=== PATIENT | male | born 1980 | race African-American/Black ===

== ENCOUNTER 2016-09-09 12:01 | Emergency (ER) | payer BC ==
--- NOTE | 2016-09-09 12:30 | ER Document Report ---
ED Medical Screen (RME) - General Chief Complaint: Chest Pain Stated Complaint: CHEST PAIN Time Seen by Provider: 09/09/16 12:29 Mode of Arrival: Ambulatory Information source: Patient Notes: Is a 36-year-old man who presents to the emergency room with some sharp chest pain with movement of the upper arms. 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 The patient denies any exertional chest pain or shortness of breath. He does smoke a half pack per day. He is not on any medicines. His father had a heart attack in his 50s. Patient symptoms have been atypical: Sharp in nature, constant for the past few days and not associated with exertion. TRAVEL OUTSIDE OF THE [place] IN LAST 30 DAYS: No - HPI Onset: Last week Quality of pain: Sharp Severity: Mild Pain Level: 1 Associated Symptoms: denies: Chills, Fever, Shortness of breath Exacerbated by: Movement. denies: Walking Relieved by: Denies Similar symptoms previously: Yes Recently seen / treated by doctor: Yes - Related Data Allergies/Adverse Reactions: No Known Allergies Allergy (Verified 09/09/16 12:14) Past Medical History - General Information source: Patient - Social History Cigarette use (# per day): No Chew tobacco use (# tins/day): No Frequency of alcohol use: None Drug Abuse: None Lives with: Family Family history: Reviewed & Not Pertinent - Medical History Medical History: Negative Renal/ Medical History: Denies: Hx Peritoneal Dialysis Surgical Hx: Negative - Immunizations Immunizations up to date: Yes Hx Diphtheria, Pertussis, Tetanus Vaccination: Yes Review of Systems - Review of Systems Constitutional: denies: Chills, Fever EENT: No symptoms reported Cardiovascular: See HPI Respiratory: No symptoms reported Gastrointestinal: No symptoms reported Genitourinary: No symptoms reported Male Genitourinary: No symptoms reported Musculoskeletal: See HPI Skin: No symptoms reported Hematologic/Lymphatic: No symptoms reported Neurological/Psychological: No symptoms reported Physical Exam - Vital signs Vitals: Temp Pulse Resp BP Pulse Ox 98.0 F 89 20 171/88 H 97 09/09/16 12:12 09/09/16 12:12 09/09/16 12:12 09/09/16 12:12 09/09/16 12:12 Notes: Physical exam: GENERAL: 36-year-old man, alert and oriented 3, no acute distress HEAD: Atraumatic, normocephalic. EYES: Pupils equal round and reactive to light, extraocular movements intact, sclera anicteric, conjunctiva are normal. ENT: TMs normal, nares patent, oropharynx clear without exudates. Moist mucous membranes. NECK: Normal range of motion, supple without lymphadenopathy or JVD. LUNGS: Breath sounds clear to auscultation bilaterally and equal. No wheezes rales or rhonchi. HEART: Regular rate and rhythm without murmurs, rubs or gallops. ABDOMEN: Soft, normoactive bowel sounds. No tenderness to palpation. No guarding, no rebound. No masses appreciated. EXTREMITIES: Normal range of motion, no pitting or edema. No clubbing or cyanosis. NEUROLOGICAL: Cranial nerves II through XII grossly intact. Normal speech, normal gait. PSYCH: Normal mood, normal affect. SKIN: Warm, Dry, normal turgor, no rashes or lesions noted. Course - Re-evaluation Re-evalutation: 09/09/16 14:47 note: Despite that the patient's symptoms are atypical, his pressure is elevated , he does have a family history and he smokes. I have spoken to him in detail about the smoking and he states he is going to try and quit (he is only smoked for approximately a year). I have also advised him to follow-up with the char conveyor tender and he will have a blood pressure reassessed at that time. I have given him the referral number to Dr. Frye and I have called Dr. Frye to let him know that the patient will be following up with him. - Vital Signs Vital signs: Temp Pulse Resp BP Pulse Ox 98.0 F 89 20 171/88 H 97 09/09/16 12:12 09/09/16 12:12 09/09/16 12:12 09/09/16 12:12 09/09/16 12:12 - Laboratory Result Diagrams: 09/09/16 12:41 09/09/16 12:41 Laboratory results interpreted by me: 09/09/16 09/09/16 12:41 12:41 RBC 5.83 H MCH 26.5 L RDW 14.6 H Glucose 129 H ALT 122 H Creatine Kinase 328 H - Diagnostic Test Radiology reviewed: Image reviewed, Reports reviewed - X-ray shows no infiltrates or effusions - EKG Interpretation by Me Rate: Normal Rhythm: NSR - EKG shows normal sinus rhythm with no acute ST-T wave changes Doctor's Discharge - Discharge Clinical Impression: Chest pain Qualifiers: Chest pain type: other chest pain Qualified Code(s): R07.89 - Other chest pain Condition: Stable Disposition: HOME, SELF-CARE Additional Instructions: As we discussed, your heart tests look good today but was your EKG. However, your blood pressure was elevated and you may require blood pressure medicine. I would like you to follow-up with Dr. Frye ( "Marie") who is a char conveyor tender for a repeat blood pressure check and outpatient stress test. In the meantime, stop smoking as we discussed. Avoid salt. Return to the emergency room for worsening pain, shortness of breath or any concerns or getting worse. Forms: Elevated Blood Pressure Referrals: SOUMYA FRYE MD [ACTIVE STAFF] - Follow up in 1 week
[2016-09-09 13:00] LABS: ABSOLUTE BASOPHILS # (AUTO) 0.1 10^3/uL (0.0-0.2); ABSOLUTE EOSINOPHILS # (AUTO) 0.2 10^3/uL (0.0-0.6); ABSOLUTE LYMPHOCYTES (AUTO) 2.9 10^3/uL (0.5-4.7); ABSOLUTE MONOCYTES (AUTO) 0.4 10^3/uL (0.1-1.4); ABSOLUTE NEUT (AUTO) 5.1 10^3/uL (1.7-8.2); BASOPHILS % (AUTO) 0.8 % (0-2); EOSINOPHILS % (AUTO) 2.5 % (0-6); HEMATOCRIT 47.8 % (37.9-51.0); HEMOGLOBIN 15.5 g/dL (13.5-17.0); HGB HCT DIFFERENCE -1.3; LYMPHOCYTES % (AUTO) 33.7 % (13-45); MEAN CORPUSCULAR HEMOGLOBIN 26.5 pg (27.0-33.4); MEAN CORPUSCULAR HGB CONC 32.4 g/dL (32.0-36.0); MEAN CORPUSCULAR VOLUME 82 fl (80-97); MONOCYTES % (AUTO) 4.7 % (3-13); RED BLOOD COUNT 5.83 10^6/uL (4.35-5.55); RED CELL DISTRIBUTION WIDTH 14.6 % (11.5-14.0); SEGMENTED NEUTROPHILS % (AUTO) 58.3 % (42-78); WHITE BLOOD COUNT 8.8 10^3/uL (4.0-10.5)
--- NOTE | 2016-09-09 13:06 | EKG REPORT ---
SEVERITY:- BORDERLINE ECG - SINUS RHYTHM PROBABLE LEFT ATRIAL ABNORMALITY BORDERLINE T WAVE ABNORMALITIES : Confirmed by: Wallace Turk MD 09-Sep-2016 13:06:17
[2016-09-09 13:22] LABS: ALANINE AMINOTRANSFERASE 122 U/L (21-72); ALBUMIN 4.6 g/dL (3.5-5.0); ALKALINE PHOSPHATASE 88 U/L (38-126); ANION GAP 14 (5-19); ASPARTATE AMINO TRANSFERASE 58 U/L (17-59); BILIRUBIN,DIRECT 0.2 mg/dL (0.0-0.4); BILIRUBIN,TOTAL 0.9 mg/dL (0.2-1.3); BLOOD UREA NITROGEN 14 mg/dL (7-20); CALCIUM 9.6 mg/dL (8.4-10.2); CARBON DIOXIDE 27 mmol/L (22-30); CHLORIDE 103 mmol/L (98-107); CREATINE KINASE 328 U/L (55-170); CREATININE RESULT 1.13 mg/dL (0.52-1.25); GLUCOSE 129 mg/dL (75-110); POTASSIUM 3.6 mmol/L (3.6-5.0); SODIUM 143.9 mmol/L (137-145); TOTAL PROTEIN 7.9 g/dL (6.3-8.2)
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
[2016-09-09 13:38] LABS: CREATINE KINASE MB 1.29 ng/mL (<4.55)
[2016-09-09 13:57] LABS: TROPONIN I < 0.012 ng/mL
[2016-09-09 14:52] VITALS: BP 140/78
== END 2016-09-09 14:47 | disposition home or self-care (01) ==
LOC: ER 12:01
DX: R07.89 Other chest pain (principal); F17.210 Nicotine dependence, cigarettes, uncomplicated
CPT/HCPCS: 36415; 71020; 80053; 82550; 82553; 84484; 85025; 93005; 93010; 99285

== ENCOUNTER 2018-06-13 13:41 | Emergency (ER) | payer OTHER ==
[2018-06-13] MEDS ORDERED: IBUPROFEN 800 MG TABLET PO ONE (14:24)
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
[2018-06-13 15:31] VITALS: BP 172/95
== END 2018-06-13 15:28 | disposition home or self-care (01) ==
LOC: ER 13:41
DX: S16.1XXA Strain of muscle, fascia and tendon at neck level, initial encounter (principal); M25.531 Pain in right wrist; M25.532 Pain in left wrist; M54.5 Low back pain; R07.81 Pleurodynia; M54.2 Cervicalgia; V49.40XA Driver injured in collision with unspecified motor vehicles in traffic accident, initial encounter; Z87.891 Personal history of nicotine dependence
CPT/HCPCS: 99283